=== PATIENT | female | born 1985 | race Hispanic/Latino ===

== ENCOUNTER 2017-12-02 04:32 | Inpatient (IN) | payer MEDICAID, OTHER, SELFPAY ==
[2017-12-02 05:02] VITALS: BMI 26.1
--- NOTE | 2017-12-02 05:56 | PDOC.LDHP ---
Labor and Delivery H&P Chief complaint: contractions HPI: 32 yo @40.3wks by LMP c/w 19.6wk US presents with contractions since 0100 this am that are about 5 minutes apart. Denies LOF, vaginal bleeding, and minimal vaginal discharge. 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: Pap 10/2017 NILM with negative HPV testing Due date: 11/29/17 Dating criteria: second trimester ultrasound (19.6 c/w LMP) Grav: 2 Para: 1 (1001) Current complications: other (LGA, Anemia of ) Abnormal US findings: No Past Medical History: none Current medications: pre- vitamins Previous surgical history: none Social history: none - Physical Exam Vital signs reviewed and normal: yes General: breathing through contractions Heart: RRR Lungs: CTAB Abdomen: gravid Extremeties: no edema FHT: category 1 [place] contractions every: 3-5 minutes - Vaginal Exam cm dilated: 3 Effacement: 90% Station: -1 - OB Labs Blood type: O RH: negative Antibody Screen: negative HIV: negative RPR: negative HEPSAg: negative 1 hour GCT: negative GBS: unknown Urine drug screen: not done Rubella: immune Additional Labs: zika: negative dengue fever: IgG and IgM negative gonorrhea: negative chlamydia: negative 1 HR glucose 78 [place]: negative - Assessment 32 yo @40.3wks by LMP c/w 19.6wk US presents with contractions. - Plan Plan: observation in L&D -: 1.)sIUP-observe in L&D for 2 hours and recheck cervix at that time for change. Pt desires epidural. <Mei Dos Santos - Last Filed: 12/02/17 05:50> - Plan Plan: admit to L&D (40 weeks 3 days with contractions. I assumed call this AM at 0800. Was 3cm now 6 cm at 0800. HX anemia. Last sono EFW appropriate for dates. RPR negative twice. Possible past HX of treated syphilis. BOWI. Pressures normal. Spontaneous labor. GBS unkown. GBS negative. Plan: continue care for now. D/W Dr English.) <Saurabh Bhat - Last Filed: 12/02/17 08:37> <Jeremías Polanco - Last Filed: 12/05/17 15:27> Allergies/Adverse Reactions: Allergies Allergy/AdvReac Type Severity Reaction Status Date / Time No Known Allergies Allergy Verified 12/02/17 05:03 Attending Addendum - Attending Addendum I personally evaluated the patient. I agree with the History, Examination, Assessment and Plan documented above with any addition or exceptions noted below. <Jeremías Polanco - Last Filed: 12/05/17 15:27>
[2017-12-02] MEDS ORDERED: Promethazine HCl 25 MG/ML VIAL IM PRN ×4 (08:24→17:22)
[2017-12-02] MEDS ORDERED: Ibuprofen 800 MG TAB PO PRN (08:24)
[2017-12-02] MEDS ORDERED: LR / Pitocin 40 units/1000 ml 1,000 ML IV PRN (08:24)
[2017-12-02] MEDS ORDERED: Acetaminophen 500 MG TAB PO PRN (08:24)
[2017-12-02] MEDS ORDERED: Ondansetron HCl/PF 4 MG/2 ML Vial IVP PRN ×6 (08:24→17:22)
[2017-12-02] MEDS ORDERED: Lidocaine 1% (PF) 30 ML VIAL SC PRN (08:24)
--- NOTE | 2017-12-02 08:44 | PDOC.EVN ---
Event Note - Event Note Event Note: Staff H&P: please see other co-signed H&P note. clinic patient with residents co-managing.
[2017-12-02] MEDS ORDERED: Bupivacaine 20 ML, Fentanyl 400 MCG in Sodium Chloride 0.9% 72 ML EPIDURAL SCH (08:45)
[2017-12-02] MEDS: Lactated Ringer's 1,000 ML IV SCH ×2 (08:55→16:00)
[2017-12-02 08:58] LABS: Mean Corpuscular HGB CONC 32.3 g/dL (32.0-36.0); Mean Corpuscular Volume 96.1 fl (81.0-99.0); Mean Platelet Volume 9.2 fL (7.4-10.4); Platelet Count 273 thou/uL (130-400); RBC Distribution Width 13.3 % (11.5-14.5); Red Blood Cell (RBC) Count 4.19 mill/uL (4.20-5.40); White Blood Cell (WBC) Count 18.9 thou/uL (4.8-10.8)
[2017-12-02] MEDS ORDERED: diphenhydrAMINE 50 MG/ML VIAL IVP PRN ×3 (09:22→17:22)
[2017-12-02] MEDS ORDERED: Eucerin (Mineral Oil/Petrolatum,White) 30 gm Jar TOP PRN ×3 (09:22→17:22)
[2017-12-02] MEDS ORDERED: Acetaminophen 325 MG TAB PO PRN (09:22)
[2017-12-02] MEDS ORDERED: Naloxone HCl 0.4 mg/ml Vial IVP PRN ×6 (09:22→17:22)
[2017-12-02] MEDS ORDERED: Lactated Ringer's 500 ML IV PRN (09:22)
[2017-12-02] MEDS ORDERED: ePHEDrine/0.9% NaCl/PF SYRINGE 50 mg/10 ml SLOW IVP PRN (09:22)
[2017-12-02] MEDS ORDERED: Fentanyl 4mcg/Marcaine 0.1% Cassette 100 ML EPIDURAL SCH (09:30)
[2017-12-02] MEDS ORDERED: Communication Order-Pharmacy FS SCH ×3 (09:30→17:30)
[2017-12-02 09:32] LABS: HBSAg Index 0.18 S/CO (0-0.99); HIV (1/2) Antibody/Antigen Non-Reactive (NonReactive); HIV 1/2 INDEX 0.23 S/CO (<1.00); Hep B Surf Ag Non-Reactive S/CO (NonReactive)
[2017-12-02 09:43] LABS: Syphilis Antibody REACTIVE (Nonreactive); Syphilis Antibody Index 17.76 S/CO (<1.00 Non-Reactive)
--- NOTE | 2017-12-02 10:18 | PDOC.LDPN ---
Labor & Delivery Progress Note - Subjective Subjective: comfortable, vaginal pressure - Objective Vital signs reviewed and normal: yes General: NAD Uterine fundus: non tender SVE: 10:00 Dilation: 9 Effacement: 100% Station: -1 FHT: category 1 [place] contractions every: 2-3 AROM: clear fluid Plan: continue plan of care -: 32 yo @ 40.3 weeks presented w/ contractions -Currently in Labor. SVE@10:00, 100/-1. She is making good progress. -Clear rupture of membranes at 8:40. -Epidural in place. Getting good pain control. Patient progressing fine. Ctx every 2-3 mins. Category 1 strip. Will allow patient to continue to progress on her own. Will continue to monitor. Will recheck in an hour or when she feels more pressure.
[2017-12-02] MEDS ORDERED: Bupivacaine HCl 0.5%/Epinephrine 1:200,000/PF 30 ml Vial ONE (11:11)
--- NOTE | 2017-12-02 13:19 | PDOC.LDPN ---
Labor & Delivery Progress Note - Subjective Subjective: comfortable, vaginal pressure - Objective Vital signs reviewed and normal: yes General: NAD Uterine fundus: non tender SVE: 11:30 Dilation: 9.5 Effacement: 100% Station: -1 FHT: category 1 [place] contractions every: 2-4 AROM: clear fluid - Assessment (1) Term Code(s): Z34.80 - ENCOUNTER FOR SUPRVSN OF NORMAL , UNSP TRIMESTER Current Visit: Yes Status: Acute (2) Hx of maternal syphilis, currently Code(s): O09.899 - SUPERVISION OF OTHER HIGH RISK PREGNANCIES, UNSP TRIMESTER Current Visit: Yes Status: Acute Plan: continue plan of care -: 32 yo @ 40.3 weeks presented w/ contractions -Currently in Labor. SVE@11:30, 9.5/100/-1. Made a little change from last check. Still has anterior lip. -Clear rupture of membranes at 8:40. -Epidural in place. Getting good pain control. Patient progressing fine. Ctx every 2-4 mins. Category 1 strip. Will allow patient to continue to progress on her own. Will continue to monitor. Will recheck in an hour or when she feels more pressure Patient Syphillis IgG/IgM Abs reactive. Titer is 1:4. Has history of syphilis treated. Was negative on testing during care. She is serofast at this time. Could be a in tests due to . Will not treat at this time. Will notify soni team and make them aware. Will order treponemal ab tests.
--- NOTE | 2017-12-02 13:20 | PDOC.EVN ---
Event Note - Event Note Event Note: Patient pushing. Lab check: RPR positive at 1:4. Confirmatory tests pending. She has a remote history of treated syphillis. This may be sero-fast (prior RPR was negative prenatally). WE will await confirmation tsts (may be positive from past infection) and see if titers rise for RPR in 24-48hours.
--- NOTE | 2017-12-02 14:57 | PDOC.LDPN ---
Labor & Delivery Progress Note - Subjective Subjective: comfortable - Objective Vital signs reviewed and normal: yes General: NAD, breathing through contractions Uterine fundus: palpable contractions SVE: 1445 Dilation: 10 Effacement: 100% Station: 0 (8/) FHT: category 2 [place] contractions every: 2 AROM: clear fluid - Assessment (1) Term Code(s): Z34.80 - ENCOUNTER FOR SUPRVSN OF NORMAL , UNSP TRIMESTER Current Visit: Yes Status: Acute (2) Hx of maternal syphilis, currently Code(s): O09.899 - SUPERVISION OF OTHER HIGH RISK PREGNANCIES, UNSP TRIMESTER Current Visit: Yes Status: Acute Plan: continue plan of care -: 32 yo @ 40.3 weeks presented w/ contractions -Currently in Labor. SVE@12:30, 10/100/-1. Has progressed to station 0 -Clear rupture of membranes at 8:40. -Epidural in place. Getting good pain control. Ctx every 2 mins. Category 2 strip. Having a few variables. Baby HR tachycardic at times Pt has been in active labor for 2 and half hours now. Had a period of rest for 30 minutes. She has been pushing. Baby position LOT on exam. Baby is still station 0. Baby has made minimal changes when checking her with contractions. We have been adjusting positions as well. For now we will allow patient to rest until 15:30. We will allow for passive pushing. We will reassess at that time and check progress. Patient Syphillis IgG/IgM Abs reactive. Titer is 1:4. Has history of syphilis treated. Was negative on testing during care. She is serofast at this time. Could be a in tests due to . Will not treat at this time. Will notify soni team and make them aware. Will order treponemal ab tests.
[2017-12-02] MEDS ORDERED: Bicitra 30 ML UDCUP ONE (15:40)
[2017-12-02] MEDS ORDERED: CEFAZOLIN/Water 2 GM/20 ML SYRINGE ONE (15:40)
[2017-12-02] MEDS ORDERED: Bicitra 30 ML UDCUP PO SCH (15:45)
[2017-12-02] MEDS ORDERED: CEFAZOLIN/Water 2 GM/20 ML SYRINGE SLOW IVP SCH (15:45)
[2017-12-02] MEDS ORDERED: Bupivacaine 0.5% 10 ML VIAL ONE (15:53)
--- NOTE | 2017-12-02 15:54 | PDOC.EVN ---
Event Note - Event Note Event Note: PREOP NOTE: Patient has been seen and examined. Preop note in physical chart. She has been complete (in second stage) for 3 hours. SUMEET in use. Exam is C/C/0, suspect deep transverse arrest. vagina and sidewalls with edematous changes. I cannot rotate. monitor with moderate variability and few variables. Due to prolonged second stage, we will proceed with primary CS. this has been d/w residents, anesthesia, and the patient.
[2017-12-02] MEDS ORDERED: PHENYLEPHRINE-NS 100 MCG/ML 10 ML SYRINGE ONE ×2 (16:04→16:41)
[2017-12-02] MEDS ORDERED: Oxytocin 10 UNITS/ML VIAL ONE (16:04)
[2017-12-02] MEDS ORDERED: Ondansetron HCl/PF 4 MG/2 ML Vial ONE ×2 (16:05→16:41)
[2017-12-02] MEDS ORDERED: Morphine PF 1 MG/ML SYR ONE ×2 (16:05→16:06)
--- NOTE | 2017-12-02 16:06 | PDOC.EVN ---
Event Note - Event Note Event Note: Patient being transferred to CS room now. Surgeons will be Residents service station attendant, I will be scrubbed and in room.
[2017-12-02] MEDS ORDERED: Meperidine HCl/PF 25 MG/ML VIAL SLOW IVP PRN ×2 (16:10→17:22)
[2017-12-02] MEDS ORDERED: HYDROmorphone 2 MG/ML VIAL SLOW IVP PRN ×2 (16:10→17:22)
[2017-12-02] MEDS ORDERED: Naloxone HCl 0.4 mg/ml Vial IV PRN ×2 (16:11→17:22)
[2017-12-02] MEDS ORDERED: Ketorolac Tromethamine 30 MG/ML VIAL IVP PRN ×2 (16:11→17:22)
[2017-12-02] MEDS ORDERED: Promethazine HCl 25 MG SUPP PR PRN ×2 (16:11→17:22)
[2017-12-02] MEDS ORDERED: Ketorolac Tromethamine 30 MG/ML VIAL IVP SCH ×2 (16:15→17:30)
[2017-12-02] MEDS ORDERED: Fentanyl 100 MCG/2 ML VIAL ONE (17:02)
--- NOTE | 2017-12-02 17:31 | PDOC.OPDEL ---
OB Operative/Delivery Note Delivery Dr/Surgeon: [place]/Home Assist: Home (Faculty) Pre-Delivery Diagnosis: arrest of dilation, other (Arrest of descent) Procedure/Post Delivery Dx: primary low transverse CS (pfannesnstiel) Anesthesia: epidural - Findings A Sex: male - 1 min: 8 - 5 min: 9 - Additional Findings/Plan Placenta delivered: manual removal Repaired Obstetrical Laceration: none findings: low transverse hysterotomy without extension, normal uterus, normal tubes, normal ovaries Estimated blood loss: 800 Compilations/Other Findings: IVF 1100, UOP by thomas (blood tinged..150). I was scrubbed and assisted with delivery. No complications noted. Skin stapled closed. NICU present for delivery. Please see dictation by resident concrete boom operator. PEDI is aware of maternal low level RPR status. We will repeat RPR in 24 hours. Confirmation test pending. Post delivery plan: routine recovery (Patient tolerated procedure well. Uterus closed in 2 layers.)
[2017-12-02] MEDS: Azithromycin 500 MG in Sodium Chloride 0.9% 250 ML 250 ML IVPB SCH (17:40)
[2017-12-02] MEDS ORDERED: Ketorolac Tromethamine 30 MG/ML VIAL ONE (18:37)
[2017-12-02] MEDS ORDERED: Lanolin Ointment 7 GM TUBE TOP PRN (20:53)
[2017-12-03] MEDS: Lactated Ringer's 1,000 ML IV SCH ×2 (01:00→08:15)
--- NOTE | 2017-12-03 01:03 | OP-2 ---
DATE OF PROCEDURE: 12/02/2017 RESIDENT SURGEON: Dr. Ranjit English. ATTENDING SURGEON: Dr. Saurabh Bhat. PROCEDURE: Primary low transverse section. PREOPERATIVE DIAGNOSES: 1. Term intrauterine , in labor. 2. Anemia. 3. Positive RPR. POSTOPERATIVE DIAGNOSES: 1. Term intrauterine , delivered. 2. Anemia with . 3. Positive RPR. ANESTHESIA: Epidural. INDICATIONS: The patient is a 32-year-old G2, P1 female at 40.3 weeks gestation who presented in lab or, patient progressed to active labor over the course of the morning, was completely dilated around noon on the . Patient then had prolonged second stage of labor without any descent into the pelv is or restitution of the baby's acynclitic presentation over the next 3 hours. Due to this a C-secti on was called at 3:30 pm. PROCEDURE IN DETAIL: After risks, benefits, and alternatives were explained, the patient gave inform ed consent. Preoperative antibiotics included cefazolin 2 grams IV. The patient was taken to the op erating room and spinal anesthesia was already completed via her epidural. She was placed in supine position with a left tilt. She was prepped and draped in the usual sterile fashion. A Pfannenstiel incision was made with scalpel and carried down to level of the fascia, which was sharply nicked. Fa scial cut was extended bilaterally with Chaudhary Scissors. Inferior and superior edges of the cut fascia l edges were elevated with [place] clamps and underlying rectus muscles were sharply and bluntly disse cted free. The recti were divided digitally and retracted manually. The peritoneum was entered blun tly and retracted manually. Leonel O was placed. Low transverse score was made with scalpel and joselito raoul was entered in the midline with the scalpel. Clear fluid was seen. Hysterotomy was extended man ually. The infant was noted to be in vertex position, was easily delivered by fundal pressure. Mout h and nares were bulb suctioned. Cord was clamped and cut, and grossly normal male was handed to waiting nurse. A segment of cord was obtained, however a sample was unable to be drawn from the vessels to the inadequate amount of blood inside. Cord blood was obtained. Placenta was manually ex tracted, found to be intact with three-vessel cord and sent to pathology. The endometrium was curett ed with a dry lap. The uterus was then closed with a running locking 1 Vicryl suture following by a running nonlocking 1 Vicryl embricating suture. Following this, hemostasis was noted. The abdomen w as irrigated with saline and suctioned free of clots. Leonel O was removed. Hemostasis was again no renzo. Peritoneum was closed with 2-0 chromic suture. Three horizontal mattress sutures were placed i n the rectus muscle for approximation, using a 3-0 chromic suture. Fascia was closed with a 0 PDS zuluaga ture. Subcutaneous tissue was irrigated and there were no bleeders. Skin was approximated with stap les and pressure dressing was placed. All counts were correct. The patient tolerated the procedure well and was taken to the recovery room in stable condition. ESTIMATED BLOOD LOSS: 800 mL. COMPLICATIONS: None. SPECIMENS: Cord blood sent to lab for blood type and sent to pathology. FINDINGS: Grossly normal male with Apgars of 8 and 9. Grossly normal placenta with three-ves heather cord, sent to path. DRAINS: [place] to gravity draining clear urine.
[2017-12-03 06:01] LABS: Hemoglobin 8.7 g/dL (12.0-16.0); Mean Corpuscular HGB CONC 33.3 g/dL (32.0-36.0); Mean Corpuscular Hemoglobin 31.2 pg (27.0-31.0); Mean Corpuscular Volume 93.5 fl (81.0-99.0); Mean Platelet Volume 8.2 fL (7.4-10.4); Platelet Count 205 thou/uL (130-400); RBC Distribution Width 12.9 % (11.5-14.5); Red Blood Cell (RBC) Count 2.78 mill/uL (4.20-5.40); White Blood Cell (WBC) Count 21.4 thou/uL (4.8-10.8)
[2017-12-03] MEDS ORDERED: Docusate 100 MG CAP PO PRN (07:14)
--- NOTE | 2017-12-03 07:16 | PDOC.PP ---
Post Progress Note Post Day #: 1 Subjective: Did well overnight. Feels a little warm this morning but otherwise no complaints. Has not eaten much yet, but is starting to feel a little hungry. PO intake tolerated: yes Flatus: no Ambulation: no Vital Signs (12 hours) Temp Pulse Resp BP 12/03/17 05:30 98.5 F 99 16 106/57 L 12/02/17 23:30 98.1 F 101 H 18 103/52 L 12/02/17 22:30 92 113/57 L 12/02/17 21:30 85 107/57 L 12/02/17 20:30 98.0 F 85 16 115/59 L Weight Weight 73.482 kg - Physical Examination General: NAD Cardiovascular: no m/r/g, RRR Respiratory: clear to auscultation bilaterally, non-labored breathing Abdominal: + bowel sounds, no distention, appropriately TTP Fundus firm & at: 2cm below umbilicus Extremities: negative homans (B) Skin: CS incision dry & intact, no rash Neurological: no gross focal deficits Psychiatric: A&Ox3, normal affect Result Diagrams: 12/03/17 05:15 Additional Labs: Post Labs Blood Type O POSITIVE 12/02/17 06:35 Hep Bs Antigen Non-Reactive S/CO (NonReactive) 12/02/17 06:35 (1) delivery delivered Code(s): O82 - ENCOUNTER FOR DELIVERY WITHOUT INDICATION Status: Acute Comment: Delivered SID Iniguez via primary LTCS at 1632 on 12/02/17. EBL 800. Incision healing well. Continue pain control and encourage ambulation. Tolerating po, will continue to advance diet today. (2) Positive RPR test Code(s): A53.0 - LATENT SYPHILIS, UNSPECIFIED EARLY OR LATE Status: Acute Comment: Has history of syphilis in the past that was treated, tested negative twice during her prior to testing positive here yesterday. Repeat titer reduced. Suspect serofast status. (3) Anemia Code(s): D64.9 - ANEMIA, UNSPECIFIED Status: Acute Comment: Recheck H/H tomorrow AM. Was slightly anemic during , combined with some blood loss during surgery yesterday. Continue iron. <Ranjit English - Last Filed: 12/03/17 07:23> Vital Signs (12 hours) Temp Pulse Resp BP 12/03/17 05:30 98.5 F 99 16 106/57 L 12/02/17 23:30 98.1 F 101 H 18 103/52 L 12/02/17 22:30 92 113/57 L 12/02/17 21:30 85 107/57 L 12/02/17 20:30 98.0 F 85 16 115/59 L Weight Weight 162 lb Result Diagrams: 12/03/17 05:15 Additional Labs: Post Labs Blood Type O POSITIVE 12/02/17 06:35 Hep Bs Antigen Non-Reactive S/CO (NonReactive) 12/02/17 06:35 - Assessment/Plan Faculty Attestation: POD1 from intrapartum CS at second stage. Doing well. HCT 26 (was 40 may may have been hemoconcentrated), but doing well. We will recheck tomorrow AM.Her RPR titer which was 1:4 is now 1:2 on re-check. I suspect this is sero-fast vs acute phase reactant (past HX treated syphilis in 2009). We will recheck a titer prior to discharge. For now, afebrile and doing well. Follow HCT tomorrow. <Saurabh Bhat - Last Filed: 12/03/17 07:31>
[2017-12-03] MEDS ORDERED: Ibuprofen 800 MG TAB PO SCH (08:00)
[2017-12-03] MEDS ORDERED: Adacel (T-DAP) 0.5 ML VIAL IM ONE (09:00)
[2017-12-03] MEDS: Prenatal Vitamin 1 TAB PO SCH (09:28)
[2017-12-03] MEDS: Ferrous Sulfate 325 MG TAB PO SCH (09:28)
[2017-12-03] MEDS: Ibuprofen 800 MG TAB PO SCH ×2 (14:34→21:34)
[2017-12-03] MEDS: Azithromycin 500 MG in Sodium Chloride 0.9% 250 ML 250 ML IVPB SCH (17:04)
[2017-12-03] MEDS: HYDROcodone/Acetaminophen 5/325 mg Tablet PO PRN (17:04)
[2017-12-04] MEDS: Lactated Ringer's 1,000 ML IV SCH ×3 (02:27→17:08)
[2017-12-04] MEDS: Ibuprofen 800 MG TAB PO SCH ×2 (05:24→12:54)
[2017-12-04 05:43] LABS: #Eosinphils 0.3 thou/uL (0.0-0.7); #Lymphocytes 2.9 thou/uL (1.20-3.40); #Neutrophils 13.3 thou/uL (1.40-6.50); %Basophils 0.2 % (0.0-1.0); %Eosinophils 1.5 % (0.0-10.0); %Lymphocytes 16.5 % (21.0-51.0); %Monocytes 5.7 % (0.0-10.0); %Neutrophils 76.1 % (42.0-75.0); Hemoglobin 8.6 g/dL (12.0-16.0); Mean Corpuscular Hemoglobin 31.3 pg (27.0-31.0); Mean Corpuscular Volume 94.7 fl (81.0-99.0); Platelet Count 232 thou/uL (130-400); RBC Distribution Width 13.4 % (11.5-14.5); Red Blood Cell (RBC) Count 2.73 mill/uL (4.20-5.40); White Blood Cell (WBC) Count 17.5 thou/uL (4.8-10.8)
--- NOTE | 2017-12-04 07:05 | PDOC.PP ---
Post Progress Note Post Day #: 2 PO intake tolerated: yes Ambulation: yes Vital Signs (12 hours) Temp Pulse Resp BP 12/04/17 03:50 98.6 F 80 18 120/64 12/03/17 23:54 98.4 F 90 18 111/61 12/03/17 20:10 97.5 F L 89 18 113/60 Weight Weight 73.482 kg - Physical Examination General: NAD Cardiovascular: no m/r/g, RRR Respiratory: clear to auscultation bilaterally, non-labored breathing Abdominal: + bowel sounds, no distention, appropriately TTP Fundus firm & at: 3cm below umibilicus Extremities: negative homans (B) Skin: CS incision dry & intact Neurological: no gross focal deficits Psychiatric: A&Ox3, normal affect Result Diagrams: 12/04/17 04:56 Additional Labs: Post Labs Blood Type O POSITIVE 12/02/17 06:35 Hep Bs Antigen Non-Reactive S/CO (NonReactive) 12/02/17 06:35 (1) delivery delivered Code(s): O82 - ENCOUNTER FOR DELIVERY WITHOUT INDICATION Status: Acute Comment: Delivered SID Iniguez via primary LTCS at 1632 on 12/02/17. EBL 800. Incision healing well. Continue pain control and encourage ambulation. Tolerating po, will continue to advance diet today. (2) Positive RPR test Code(s): A53.0 - LATENT SYPHILIS, UNSPECIFIED EARLY OR LATE Status: Acute Comment: Has history of syphilis in the past that was treated, tested negative twice during her prior to testing positive here yesterday. Repeat titer reduced. Suspect serofast status. (3) Anemia Code(s): D64.9 - ANEMIA, UNSPECIFIED Status: Acute Comment: Recheck H/H tomorrow AM. Was slightly anemic during , combined with some blood loss during surgery yesterday. Continue iron.
[2017-12-04] MEDS: Prenatal Vitamin 1 TAB PO SCH (07:41)
[2017-12-04] MEDS: Ferrous Sulfate 325 MG TAB PO SCH (07:41)
[2017-12-04] MEDS: HYDROcodone/Acetaminophen 5/325 mg Tablet PO PRN (07:45)
[2017-12-04 12:39] VITALS: TEMP 98
[2017-12-04 12:41] VITALS: BP 106/55
== END 2017-12-04 19:35 | disposition home or self-care (01) | DRG 766 ==
LOC: L&D/OP 04:32 → L&D 08:29 → 3SE 18:58 → L&D 19:01 → 3SW 20:31
PROVIDERS: ADMIT Obstetrics & Gynecology; ATTEND Obstetrics & Gynecology
PROC: 10D00Z1 Extraction of Products of Conception, Low, Open Approach (ICD-10-PCS; principal; 2017-12-02)
PROC: 10H07YZ Insertion of Other Device into Products of Conception, Via Natural or Artificial Opening (ICD-10-PCS; 2017-12-02)
PROC: 10907ZC Drainage of Amniotic Fluid, Therapeutic from Products of Conception, Via Natural or Artificial Opening (ICD-10-PCS; 2017-12-02)
DX: O64.0XX0 Obstructed labor due to incomplete rotation of fetal head, not applicable or unspecified (principal); O36.63X0 Maternal care for excessive fetal growth, third trimester, not applicable or unspecified; O63.1 Prolonged second stage (of labor); Z3A.40 40 weeks gestation of pregnancy; Z37.0 Single live birth; O99.02 Anemia complicating childbirth; R76.8 Other specified abnormal immunological findings in serum
CPT/HCPCS: 36415; 51702; 85025; 85027; 86593; 86780; 86850; 86900; 86901; 87340; 87389; 88307; 99285; A4216; J0456; J0595; J0670; J1885; J2001; J2274; J2405; J2590; J3010; J3490; J7050